=== PATIENT | male | born 1940 | race Caucasian/White ===

== ENCOUNTER → 2016-09-11 | Outpatient (CLI) | payer OTHER, BC | LOC: RAD 12:05 | DX: R05 Cough (principal) ==

== ENCOUNTER → 2016-12-12 | Outpatient (CLI) | payer OTHER, BC | LOC: RAD 14:25 | DX: R05 Cough (principal); R06.02 Shortness of breath ==

== ENCOUNTER → 2017-01-13 | Outpatient (CLI) | payer OTHER, BC | LOC: RAD 08:30 | DX: J84.9 Interstitial pulmonary disease, unspecified (principal) ==

== ENCOUNTER → 2017-06-19 | Outpatient (CLI) | payer OTHER, BC | LOC: RAD 10:51 | DX: J84.89 Other specified interstitial pulmonary diseases (principal) ==

== ENCOUNTER → 2018-04-27 | Outpatient (CLI) | payer OTHER, BC | LOC: RAD 12:41 | DX: J84.9 Interstitial pulmonary disease, unspecified (principal); M43.22 Fusion of spine, cervical region ==

== ENCOUNTER → 2018-10-27 | Outpatient (CLI) | payer OTHER, BC | LOC: RAD 09:38 | DX: J84.9 Interstitial pulmonary disease, unspecified (principal); Z98.1 Arthrodesis status; Z88.8 Allergy status to other drugs, medicaments and biological substances ==

== ENCOUNTER → 2019-05-04 | Outpatient (CLI) | payer OTHER, BC | LOC: RAD 12:02 | DX: J84.9 Interstitial pulmonary disease, unspecified (principal) ==